=== PATIENT | female | born 1970 | race Two or more races ===

== ENCOUNTER 2018-11-05 08:35 | Emergency (ER) | payer OTHER ==
[~2018-11-05] VITALS: Ht 157.5 cm; Wt 59.0 kg
[2018-11-05] MEDS ORDERED: NORFLEX100MG PO (10:00)
[2018-11-05] MEDS ORDERED: MOTRIN IB200 MG PO (10:00)
== END 2018-11-05 10:29 | disposition home or self-care (01) ==
LOC: ER 08:35
DX: M75.81 Other shoulder lesions, right shoulder (principal)